=== PATIENT | male | born 1965 | race Caucasian/White ===

== ENCOUNTER 2019-09-29 10:50 | Outpatient (CLI) | payer MEDICARE, SELFPAY ==
--- NOTE | 2019-10-08 12:11 | SLEEP_ITS ---
Home Sleep Test DATE OF STUDY: 09/29/2019 ORDERING PHYSICIAN: Soraya Pressley M.D. REASON FOR THE STUDY: Hypersomnia. HISTORY: This patient is a 54-year-old male, 5 feet 9 inches tall, weighing 185 pounds with a body mass index of 27.3. He has complaints of occasional snoring, which is occasionally loud enough that others complain about it. He constantly has trouble sleeping with a cold. He frequently wakes up gasping for breath at night, has been told by others that he has breathing problems at night and frequently sweats excessively at night. He rarely notices his heart pounding at night. He occasionally falls asleep during the day rarely involuntarily, never while driving. He rarely has loss of muscle tone with strong emotion. He does not have daytime difficulty due to excessive sleepiness. He rarely feels paralyzed on waking or falling asleep. He does not have vivid dreamlike scenes upon awakening or falling asleep. He is not afraid to go to sleep. Does not have nightmares. Does not remember his dreams. He frequently has racing thoughts. He occasionally feels sad, depressed, and anxious. He frequently has muscular tension. He occasionally kicks at night and has crawly achy feelings in the legs at night. He rarely has leg pain at night. He frequently wakes up with morning jaw pain, constantly grinds his teeth at night. He constantly is bothered by pain during the day. He frequently is awakened by pain at night. He constantly wakes up feeling stiff in the morning with sore achy muscles and spine and neck pain. He feels tense, depressed, cannot keep a job, has financial issues, loss of appetite and feels unable to have a good time. He does watch TV before falling asleep. He does not take naps. A short nap is not refreshing. He is drowsy in the morning for 2 hours or longer. Normal bedtime is 9 p.m., falling asleep within 45 minutes, waking 5 or 6 times at night for 5 to 10 minutes frequently going to the bathroom. He wakes in the morning at 5:00 a.m. MEDICAL COMORBIDITIES: Hypertension, chronic pain, hyperlipidemia, insomnia. MEDICATIONS: 1. Oxycodone 5 times per day. 2. Pravastatin once daily. 3. Tizanidine once daily. 4. Albuterol p.r.n. 5. Breo 1 puff daily. HABITS: Cigarettes half pack per day. No caffeine. Alcohol, 2 beverages a day. There is some marijuana use. DESCRIPTION OF THE STUDY: [place] Sleepiness Scale, score is 13. This was conducted as an unattended portable home sleep test using 4 channel monitoring including respiratory effort channel, heart rate channel, oxygen saturation channel, and snoring channel. The duration of the study was 6 hours 42 minutes. The study was scored using CMS guidelines. The apnea-hypopnea index is 15.2. The pulse ox signal was not recorded so that as a deficit and scoring this study, however, the patient did have 102 apneas. 22 apneas or 22% of these were central, 79 apneas or 77% were obstructive, 1 apnea was mixed and there were 63 snoring events. Heart rate ranged from 65 to 99. IMPRESSION: This home sleep test shows evidence of an apnea-hypopnea index of 15.2, moderate obstructive sleep apnea G47.33. The patient had a mix of obstructive primarily as well as about a quarter of the apneas being central. The oximetry was not adequate. However, the respiratory effort band did show apneas and hypopneas. Given the patient's hypertension, the patient should have PAP therapy. One option would be auto PAP with pressures from 5 to 15 cm. The patient will need overnight oximetry on this device in order to assure that the saturation is adequate. The lack of saturation makes this a less than ideal study, but would not have to be repeated to establish the diagnosis, which is obstructive
== END 2019-09-29 10:51 | disposition home or self-care (01) ==
LOC: ANHCSM 10:51
PROVIDERS: PCP Family Medicine; Visit Provider Family Medicine
DX: G47.10 Hypersomnia, unspecified (principal); G47.00 Insomnia, unspecified; R40.0 Somnolence
CPT/HCPCS: 95806